=== PATIENT | male | born 1970 | race Caucasian/White ===

== ENCOUNTER 2017-12-13 04:39 | Emergency (ER) | payer OTHER ==
[~2017-12-13] VITALS: Ht 172.7 cm; Wt 93.4 kg
[2017-12-13] MEDS ORDERED: NORVASC5 MG (05:03)
[2017-12-13] MEDS ORDERED: AVAPRO150 MG (05:03)
[2017-12-13] MEDS ORDERED: KETO10TA2 PO (08:46)
[2017-12-13] MEDS ORDERED: NORFLEX100MG PO (08:46)
== END 2017-12-13 08:55 | disposition home or self-care (01) ==
LOC: ER 04:39 → EDBD 04:43 → ER 08:55
DX: R07.89 Other chest pain (principal)

== ENCOUNTER 2018-05-11 04:23 | Emergency (ER) | payer OTHER ==
[~2018-05-11] VITALS: Ht 167.6 cm; Wt 81.6 kg
[~2018-05-11 04:23] MED LIST: AVAPRO150 MG; KETO10TA2 PO; NORFLEX100MG PO; NORVASC5 MG
[2018-05-11] MEDS ORDERED: KETO10TA2 PO (05:56)
[2018-05-11] MEDS ORDERED: CEFUROXIME500 MG PO (05:56)
== END 2018-05-11 06:11 | disposition home or self-care (01) ==
LOC: ER 04:23
DX: J06.9 Acute upper respiratory infection, unspecified (principal)

== ENCOUNTER 2020-08-26 21:01 | Emergency (ER) | payer OTHER ==
[~2020-08-26] VITALS: Ht 165.1 cm; Wt 99.8 kg
[~2020-08-26 21:01] MED LIST changes: +CEFUROXIME500 MG PO
== END 2020-08-27 00:37 | disposition home or self-care (01) ==
LOC: ER 21:01
DX: L03.114 Cellulitis of left upper limb (principal)

== ENCOUNTER → 2020-10-20 14:41 | Outpatient (CLI) | payer OTHER | END | disposition home or self-care (01) | LOC: LAB 14:41 → EDBD 14:41 | PROVIDERS: ATTEND Radiology Diagnostic Radiology | DX: R31.21 Asymptomatic microscopic hematuria (principal) ==

== ENCOUNTER 2020-11-04 09:38 | Outpatient (CLI) | payer OTHER | END 2020-11-04 10:20 | disposition home or self-care (01) | LOC: TOM 09:38 | DX: K40.90 Unilateral inguinal hernia, without obstruction or gangrene, not specified as recurrent (principal); N41.8 Other inflammatory diseases of prostate; R31.21 Asymptomatic microscopic hematuria ==

== ENCOUNTER 2021-09-17 12:36 | Emergency (ER) | payer OTHER ==
[~2021-09-17] VITALS: Ht 170.2 cm; Wt 97.1 kg
[2021-09-17] MEDS ORDERED: AMLODIPINE BESY10 MG PO (13:16)
[2021-09-17] MEDS ORDERED: LOSARTAN POTAS100 MG PO (13:16)
[2021-09-17] MEDS ORDERED: AUGMENTIN XR 11 EACH PO (14:49)
== END 2021-09-17 14:58 | disposition home or self-care (01) ==
LOC: ER 12:36
DX: S51.812A Laceration without foreign body of left forearm, initial encounter (principal); X58.XXXA Exposure to other specified factors, initial encounter; Y93.9 Activity, unspecified; Y92.9 Unspecified place or not applicable; Y99.9 Unspecified external cause status

== ENCOUNTER 2021-09-27 09:25 | Emergency (ER) | payer OTHER ==
[~2021-09-27] VITALS: Ht 167.6 cm; Wt 92.5 kg
[~2021-09-27 09:25] MED LIST changes: +AMLODIPINE BESY10 MG PO; +AUGMENTIN XR 11 EACH PO; +LOSARTAN POTAS100 MG PO
[2021-09-27] MEDS ORDERED: AMOX-CLAV 875-1 EACH PO (10:24)
== END 2021-09-27 10:33 | disposition home or self-care (01) ==
LOC: ER 09:25
DX: Z48.02 Encounter for removal of sutures (principal)